=== PATIENT | male | born 1985 | race Two or more races ===

== ENCOUNTER 2017-09-14 12:40 | Emergency (ER) | payer MEDICAID ==
[~2017-09-14] VITALS: Ht 182.9 cm; Wt 90.7 kg
[2017-09-14 12:45] VITALS: BP 133/90
== END 2017-09-14 13:24 | disposition home or self-care (01) ==
LOC: ER 12:41
DX: A60.00 Herpesviral infection of urogenital system, unspecified (principal)
CPT/HCPCS: 99283; A4606; Z7610

== ENCOUNTER 2017-09-15 12:38 | Emergency (ER) | payer MEDICAID ==
[~2017-09-15] VITALS: Ht 182.9 cm; Wt 90.7 kg
[2017-09-15 12:46] VITALS: BP 136/83
== END 2017-09-15 13:24 | disposition home or self-care (01) ==
LOC: ER 12:40
DX: A60.00 Herpesviral infection of urogenital system, unspecified (principal)
CPT/HCPCS: 99282; A4606; Z7610

== ENCOUNTER 2017-11-12 12:36 | Emergency (ER) | payer MEDICAID ==
[~2017-11-12] VITALS: Ht 182.9 cm; Wt 90.7 kg
[2017-11-12 12:40] VITALS: BP 135/83
== END 2017-11-12 13:11 | disposition home or self-care (01) ==
LOC: ER 12:37
DX: H66.93 Otitis media, unspecified, bilateral (principal)
CPT/HCPCS: 99283; A4606; Z7610

== ENCOUNTER 2018-09-23 11:03 | Emergency (ER) | END 2018-09-23 11:35 | disposition home or self-care (01) | DX: R19.7 Diarrhea, unspecified (principal); F10.10 Alcohol abuse, uncomplicated; F12.10 Cannabis abuse, uncomplicated; Y90.9 Presence of alcohol in blood, level not specified ==

== ENCOUNTER 2018-12-22 09:59 | Emergency (ER) | payer OTHER ==
[~2018-12-22] VITALS: Ht 172.7 cm; Wt 77.1 kg
[2018-12-22 10:15] VITALS: BP 139/89
== END 2018-12-22 11:12 | disposition home or self-care (01) ==
LOC: ER 09:59
DX: S30.811A Abrasion of abdominal wall, initial encounter (principal); L73.9 Follicular disorder, unspecified; L53.8 Other specified erythematous conditions; F10.10 Alcohol abuse, uncomplicated; F12.10 Cannabis abuse, uncomplicated; Y90.9 Presence of alcohol in blood, level not specified; X58.XXXA Exposure to other specified factors, initial encounter; Y93.89 Activity, other specified; Y92.89 Other specified places as the place of occurrence of the external cause; Y99.8 Other external cause status

== ENCOUNTER 2019-06-24 09:21 | Emergency (ER) | payer OTHER ==
[~2019-06-24] VITALS: Ht 182.9 cm; Wt 99.8 kg
[2019-06-24 09:32] VITALS: BP 139/85
== END 2019-06-24 09:51 | disposition home or self-care (01) ==
LOC: ER 09:21
DX: J20.9 Acute bronchitis, unspecified (principal); F10.10 Alcohol abuse, uncomplicated; F12.10 Cannabis abuse, uncomplicated; Y90.9 Presence of alcohol in blood, level not specified

== ENCOUNTER 2019-09-25 10:38 | Emergency (ER) | payer OTHER ==
[~2019-09-25] VITALS: Ht 182.9 cm; Wt 99.8 kg
[2019-09-25 10:40] VITALS: BP 137/83
[2019-09-25] MEDS ORDERED: IBUPROFEN 600 MG TABLET PO ONE ×2 (11:00→11:10)
== END 2019-09-25 11:21 | disposition home or self-care (01) ==
LOC: ER 10:38
DX: J06.9 Acute upper respiratory infection, unspecified (principal); F10.10 Alcohol abuse, uncomplicated; F12.10 Cannabis abuse, uncomplicated; Y90.9 Presence of alcohol in blood, level not specified

== ENCOUNTER 2021-03-02 05:12 | Emergency (ER) | payer OTHER ==
[~2021-03-02] VITALS: Ht 182.9 cm; Wt 99.8 kg
[2021-03-02 05:33] VITALS: BP 143/87
[2021-03-02] MEDS ORDERED: FLUT9.9S NS (06:26)
== END 2021-03-02 06:34 | disposition home or self-care (01) ==
LOC: ER 05:15
DX: R09.82 Postnasal drip (principal); J06.9 Acute upper respiratory infection, unspecified; F10.10 Alcohol abuse, uncomplicated; Y90.9 Presence of alcohol in blood, level not specified; Z79.899 Other long term (current) drug therapy
CPT/HCPCS: 86403-TC; 87070-TC

== ENCOUNTER 2021-10-21 07:42 | Emergency (ER) | payer OTHER ==
[~2021-10-21] VITALS: Ht 182.9 cm; Wt 95.3 kg
[~2021-10-21 07:42] MED LIST: FLUT9.9S NS
[2021-10-21 07:55] VITALS: BP 128/82
[2021-10-21] MEDS ORDERED: METH4TAB3 PO (08:14)
--- NOTE | 2021-10-21 08:26 | NUR ---
Patient discharged to home in stable condition. Written and verbal after care instructions given. Patient verbalizes understanding of instruction.
== END 2021-10-21 08:26 | disposition home or self-care (01) ==
LOC: ER 07:46
DX: J02.9 Acute pharyngitis, unspecified (principal); Z79.52 Long term (current) use of systemic steroids; Z79.51 Long term (current) use of inhaled steroids

== ENCOUNTER → 2023-08-10 | Emergency (ER) | payer OTHER ==
[~2023-08-10] VITALS: Ht 182.9 cm; Wt 117.9 kg
[~2023-08-10] MED LIST changes: +BENZ-13 PO; +IBUP-1955 PO; +KETOROLAC TROMETHAMINE 15 MG/ML VIAL ONE; +KETOROLAC TROMETHAMINE INJ 30 MG/ML VIAL IM ONE; +METH4TAB3 PO
[2023-08-10 10:18] VITALS: BP 124/73; TEMP 99; O2SAT 97
== END | disposition home or self-care (01) ==
LOC: ER 10:17
DX: J06.9 Acute upper respiratory infection, unspecified (principal); R05.9 Cough, unspecified; R09.81 Nasal congestion
CPT/HCPCS: J1885